=== PATIENT | female | born 1985 | race Hispanic/Latino ===

== ENCOUNTER 2016-07-27 13:37 | Inpatient (IN) | payer SELFPAY ==
[~2016-07-27] VITALS: Ht 137.2 cm; Wt 57.6 kg
[2016-07-27 09:54] LABS: HEMATOCRIT 30.7 % (37.0-47.0); HEMOGLOBIN 9.9 g/dl (12.0-16.0); IMMATURE GRANULOCYTES 2.7 % (0.0-1.0); MEAN CELL VOLUME 84.1 fL CALC (80.0-100.0); MEAN CORPUSCULAR HGB 27.1 pG CALC (26.0-32.0); MEAN CORPUSCULAR HGB CONC 32.2 g/L CALC (32.0-36.0); NEUT# 9.4 thou/uL (2.00-7.15); RED BLOOD COUNT 3.65 mill/uL (4.20-5.60); RED CELL DISTRI WIDTH 16.4 % (11.5-15.5)
[2016-07-27 10:00] LABS: URINE BILIRUBIN - DIPSTICK NEGATIVE (NEGATIVE); URINE BLOOD DIPSTICK NEGATIVE (NEGATIVE); URINE CLARITY CLEAR; URINE COLOR YELLOW; URINE GLUCOSE - DIPSTICK NEGATIVE (NEGATIVE); URINE KETONE NEGATIVE (NEGATIVE); URINE LEUK ESTERASE NEGATIVE (Negative); URINE NITRITE - DIPSTICK NEGATIVE (Negative); URINE PROTEIN - DIPSTICK NEGATIVE (NEG-TRACE); URINE UROBILINOGEN - DIPSTICK 0.2 E.U./dL (0.2)
[2016-07-27 10:03] LABS: BARBITURATES NEGATIVE (NEGATIVE); COCAINE NEGATIVE (NEGATIVE); METHADONE NEGATIVE (NEGATIVE); OXCYCODONE NEGATIVE (NEGATIVE); TETRAHYDROCANNABIONOL NEGATIVE (NEGATIVE); TRICYLIC ANTIDEPRESSANTS NEGATIVE (NEGATIVE)
[~2016-07-27 13:37] MED LIST: CIPRO XR500 MG PO; FERR SULFATE325 MG PO; PRE-NATAL PO; PRENATA9 PO
[2016-07-28] VITALS (14 sets, daily range): BP systolic 90–117; BP diastolic 40–70
[2016-07-28 15:09] LABS: HEMATOCRIT 25.8 % (37.0-47.0); HEMOGLOBIN 8.5 g/dl (12.0-16.0); IMMATURE GRANULOCYTES 1.2 % (0.0-1.0); MEAN CORPUSCULAR HGB 27.3 pG CALC (26.0-32.0); MEAN CORPUSCULAR HGB CONC 32.9 g/L CALC (32.0-36.0); NEUT# 12.97 thou/uL (2.00-7.15); RED BLOOD COUNT 3.11 mill/uL (4.20-5.60); RED CELL DISTRI WIDTH 16.5 % (11.5-15.5)
[2016-07-29 05:00] VITALS: BP 98/50
[2016-07-29 07:20] VITALS: BP 93/55
[2016-07-29 16:30] VITALS: BP 98/55
[2016-07-29 19:00] VITALS: BP 105/55
[2016-07-30 08:00] VITALS: BP 93/59
[2016-07-30] MEDS ORDERED: IBUPROFEN600 MG PO (08:27)
[2016-07-30] MEDS ORDERED: NORCO1 TA1 PO (08:27)
== END 2016-07-30 12:15 | disposition home or self-care (01) | DRG 765 ==
LOC: OB 07-28 00:04
PROC: 10D00Z0 Extraction of Products of Conception, High, Open Approach (ICD-10-PCS; principal; 2016-07-28)
PROC: 0UB70ZZ Excision of Bilateral Fallopian Tubes, Open Approach (ICD-10-PCS; 2016-07-28)
DX: O34.212 Maternal care for vertical scar from previous cesarean delivery (principal); D62 Acute posthemorrhagic anemia; D50.9 Iron deficiency anemia, unspecified; N85.8 Other specified noninflammatory disorders of uterus; O99.02 Anemia complicating childbirth; O99.03 Anemia complicating the puerperium; Z37.0 Single live birth; Z3A.39 39 weeks gestation of pregnancy
CPT/HCPCS: J2270

== ENCOUNTER 2021-11-30 16:52 | Emergency (ER) | payer SELFPAY ==
[~2021-11-30] VITALS: Ht 137.2 cm; Wt 56.8 kg
[~2021-11-30 16:52] MED LIST changes: +IBUPROFEN600 MG PO; +NORCO1 TA1 PO
[2021-11-30 17:50] LABS: URINE BILIRUBIN - DIPSTICK NEGATIVE (NEGATIVE); URINE BLOOD DIPSTICK NEGATIVE (NEGATIVE); URINE COLOR YELLOW; URINE GLUCOSE - DIPSTICK NEGATIVE (NEGATIVE); URINE KETONE NEGATIVE (NEGATIVE); URINE LEUK ESTERASE NEGATIVE (NEGATIVE); URINE PROTEIN - DIPSTICK NEGATIVE (NEG-TRACE); URINE SPECIFIC GRAVITY 1.015; URINE UROBILINOGEN - DIPSTICK 0.2 E.U./dL (0.2)
[2021-11-30 17:55] LABS: URINE NITRITE - DIPSTICK NEGATIVE (Negative)
[2021-11-30] MEDS ORDERED: NEXIUM40 M1 PO (18:25)
[2021-11-30 18:37] LABS: IMMATURE GRANULOCYTES 0.2 % (0.0-5.0); MEAN CORPUSCULAR HGB 22.8 pG CALC (26.0-32.0); MEAN CORPUSCULAR HGB CONC 31.2 g/dL CAL (32.0-36.0); NEUT# 8.7 thou/uL (2.00-7.15); RED BLOOD COUNT 4.64 mill/uL (4.20-5.60); RED CELL DISTRI WIDTH 15.7 % (11.5-15.5)
[2021-11-30 18:39] LABS: HEMOGLOBIN 10.6 g/dl (12.0-16.0); MEAN CELL VOLUME 73.3 fL CALC (80.0-100.0)
[2021-11-30 18:49] LABS: ANION GAP 16 (6-22 (CALC)); BILIRUBIN, TOTAL 0.4 mg/dL (0.0-1.4); BUN 9 mg/dL (7-17); BUN/CREATININE RATIO 17 (12-20 (CALC)); CARBON DIOXIDE 25 mmol/l (22-30); CHLORIDE 104 mmol/l (95-108); CREATININE 0.6 mg/dL (0.5-1.0); GFR FOR AFR.AMER. > 60 ML/MIN (>=60 (CALC)); GFR OTHER RACES > 60 ML/MIN (>=60 (CALC)); LIPASE 55 u/l (23-300); POTASSIUM 4.1 mmol/l (3.5-5.1); SODIUM 141 mmol/l (137-146)
[2021-11-30 18:50] LABS: ALBUMIN 4.9 g/dL (3.2-5.0); ALKALINE PHOSPHATASE 211 u/l (38-126); SGOT/AST 392 u/l (14-36); TOTAL PROTEIN 8.7 g/dL (6.3-8.2)
[2021-11-30] MEDS ORDERED: PROMETHAZINE HY25 M1 PO (21:49)
[2021-11-30] MEDS ORDERED: TRAMADOL HCL50 MG PO (21:49)
[2021-11-30 22:04] VITALS: BP 108/65
== END 2021-11-30 22:04 | disposition home or self-care (01) | DRG 392 ==
LOC: ED 16:52
PROVIDERS: Emergency Medicine
DX: R10.13 Epigastric pain (principal); K80.20 Calculus of gallbladder without cholecystitis without obstruction